=== PATIENT | male | born 1975 | race Two or more races ===

== ENCOUNTER 2021-02-09 22:29 | Emergency (ER) | payer MEDICARE, OTHER ==
[~2021-02-09] VITALS: Ht 177.8 cm; Wt 77.1 kg
[2021-02-09 22:33] VITALS: BP 170/96
== END 2021-02-09 22:44 | disposition left against medical advice (07) ==
LOC: ER 22:29
DX: Z04.6 Encounter for general psychiatric examination, requested by authority (principal); Z53.21 Procedure and treatment not carried out due to patient leaving prior to being seen by health care provider